=== PATIENT | male | born 1995 | race Two or more races ===

== ENCOUNTER 2020-01-13 21:46 | Emergency (ER) | payer OTHER ==
[~2020-01-13] VITALS: Ht 167.6 cm; Wt 74.6 kg
[2020-01-13 22:15] VITALS: BP 115/69
--- NOTE | 2020-01-13 22:16 | PHYS DOC ---
Past History Past Medical History: No Pertinent History Past Surgical History: Appendectomy Alcohol Use: None General Adult EDM: Chief Complaint: SKIN PROBLEM HPI: HPI: Patient is a 24-year-old male who presents with small lump on his lower lip. He states that he had bitten his lip a couple of months back and developed a lump underneath the skin. He states that earlier today he got tired of the lump and so squeezed it until it popped out. Patient states that now he does not know what it is and is concerned about it. He states the pain is mild. [] Review of Systems: Review of Systems: Constitutional: Denies fever or chills HENT: Positive cystic lesion lower lip Respiratory: Denies cough or shortness of breath Cardiovascular: Denies chest pain or edema Heart Score: Risk Factors: Risk Factors: DM, Current or recent (<one month) smoker, HTN, HLP, family history of CAD, obesity. Risk Scores: Score 0 - 3: 2.5% MACE over next 6 weeks - Discharge Home Score 4 - 6: 20.3% MACE over next 6 weeks - Admit for Clinical Observation Score 7 - 10: 72.7% MACE over next 6 weeks - Early Invasive Strategies Allergies: Allergies: Allergies Coded Allergies Type Severity Reaction Last Updated Verified No Known Drug Allergies 01/13/20 No Physical Exam: PE: Constitutional: Well developed, well nourished, no acute distress, non-toxic appearance. [] HENT: Normocephalic, atraumatic, oral mucosa of lower lip demonstrates small exophytic mucocele. [] Cardiovascular: Regular rate and rhythm [] Lungs & Thorax: Bilateral breath sounds clear to auscultation [] Current Patient Data: Vital Signs: Vital Signs Date Time Temp Pulse Resp B/P (MAP) Pulse Ox O2 Delivery O2 Flow Rate FiO2 01/13/20 21:59 98.2 86 18 134/75 (94) 98 Room Air EKG: EKG: [] Radiology/Procedures: Radiology/Procedures: [] Course & Med Decision Making: Course & Med Decision Making Pertinent Labs and Imaging studies reviewed. (See chart for details) Mucocele was drained with 21-gauge needle and was ligated at its base with 3-0 Chromic Gut suture Blessing Disclaimer: Blessing Disclaimer: This electronic medical record was generated, in whole or in part, using a voice recognition dictation system. Departure Departure: Impression: Primary Impression: Mucocele of lower lip Disposition: 01 HOME/RESIDENCE PRIOR TO ADM Condition: STABLE Referrals: PCP,UNKNOWN (PCP) Patient Instructions: Cyst Removal, Epidermal Cyst Justification of Admission: Justification of Admission: Justification of Admission Dx: Comment: (Not applicable) MARIELENA WILKERSON Jr. DO Jan 13, 2020 22:15
== END 2020-01-13 22:18 | disposition home or self-care (01) ==
LOC: ER 21:46
DX: K13.79 Other lesions of oral mucosa (principal)
CPT/HCPCS: 10060; 99282; 99284